=== PATIENT | female | born 1990 | race Caucasian/White ===

== ENCOUNTER 2018-08-24 01:52 | Emergency (ER) | payer OTHER ==
[2018-08-24 01:59] VITALS: TEMP 97.1
[2018-08-24] MEDS ORDERED: IBUPROFEN 600 MG TAB PO ONE (02:05)
[2018-08-24] MEDS ORDERED: IBUPROFEN 600 MG TAB ONE (02:30)
[2018-08-24 02:56] VITALS: BP 131/62; PULSE 68; RESP 18; O2SAT 97
== END 2018-08-24 04:33 | disposition home or self-care (01) | DRG 914 ==
LOC: ED 01:52
DX: S09.11XA Strain of muscle and tendon of head, initial encounter (principal); V49.9XXA Car occupant (driver) (passenger) injured in unspecified traffic accident, initial encounter; R40.2362 Coma scale, best motor response, obeys commands, at arrival to emergency department; R40.2142 Coma scale, eyes open, spontaneous, at arrival to emergency department; R40.2252 Coma scale, best verbal response, oriented, at arrival to emergency department
CPT/HCPCS: 70450; 72125; 72131; 99283; 99284; A9270-GY